=== PATIENT | female | born 1960 | race Hispanic/Latino ===

== ENCOUNTER 2019-04-22 11:56 | Observation (INO) | payer BC ==
[~2019-04-22] VITALS: Ht 154.9 cm; Wt 93.0 kg
--- OUTSIDE RECORDS SUMMARY | 2019-04-22 11:59 | XMS REPORT | Continuity of Care Document ---
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 Name Role Phone [email or web address] Unavailable Unavailable Problems Problem Status Onset Date Classification Date Reported Comments Source Z12.31 - ENCNTR SCREEN MAMMOGRAM FOR MA Active 09/20/2016 [facility] E11.9 - TYPE 2 DIABETES MELLITUS WITHO Active 12/12/2015 [facility] DX: R31.9=HEMATURIA, UNSPECIFIED// E11.9 Active 12/12/2015 [facility] Breasts asymmetrical (finding) Active Problem 12/01/2017 [facility] Ca cervix - screening done (finding) Active Problem 12/01/2017 [facility] Diabetes mellitus (disorder) Resolved Problem 12/01/2017 [facility] Increased frequency of urination (finding) Active Problem 12/01/2017 [facility] Lower abdominal pain (finding) Active Problem 12/01/2017 [facility] Moderate major depression (disorder) Active Problem 12/01/2017 [facility] Morbid obesity (disorder) Active Problem 12/01/2017 [facility] Pain in female genitalia (finding) Active Problem 12/01/2017 [facility] Rheumatoid arthritis (disorder) Active Problem 12/01/2017 [facility] Screening status (finding) Active Problem 12/01/2017 [facility] Swelling of breast (finding) Active Problem 12/01/2017 [facility] Diabetes mellitus type 2 (disorder) Active Problem 12/01/2017 [facility] HEMATURIA, UNSPECIFIED Active [facility] TYPE 2 DIABETES MELLITUS WITHOUT COMPLIC Active [facility] Medications Medication Details Route Status Patient Instructions Ordering Provider Order Date Source Folic Acid Daily, 0 Refill(s) Active 11/15/2017 [facility] Naproxen 375 mg=1 tab, PO, BID, PRN Pain, # 30 tab, 0 Refill(s) Active 11/15/2017 [facility] Plaquenil 200 mg, PO, Daily, 0 Refill(s) Active 11/15/2017 [facility] methotrexate 2.5 mg oral tablet PO, 0 Refill(s) Active 11/15/2017 [facility] Allergies, Adverse Reactions, Alerts Substance Category Reaction Severity Reaction type Status Date Reported Comments Source No Known Medication Allergies Assertion Drug allergy [facility] Immunizations No Data Provided for This Section Results No Data Provided for This Section Pathology Reports No Data Provided for This Section Diagnostic Reports No Data Provided for This Section Consultation Notes No Data Provided for This Section Discharge Summaries No Data Provided for This Section History and Physicals No Data Provided for This Section Vital Signs Vital Sign Value Date Comments Source BMI Calculated 38.29 11/15/2017 [facility] Weight 91.932 11/15/2017 [facility] Height 154.94 cm 11/15/2017 [facility] Temperature Oral (F) 98.7 F 11/15/2017 [facility] Respitory Rate 16 11/15/2017 [facility] Heart Rate 91 11/15/2017 [facility] Systolic (mm Hg) 133 11/15/2017 [facility] Diastolic (mm Hg) 82 11/15/2017 [facility] Encounters Location Location Details Encounter Type Encounter Number Reason For Visit Attending Provider ADM Date DC Date Status Source Outpatient [id number] GIULIANA DU 11/15/2017 [facility] Primary [facility] Outpatient [id number] Giuliana Ferris 11/15/2017 11/16/2017 [facility] Outpatient [id number] GIULIANA DU 11/28/2017 [facility] Ambulatory Pre-Reg [id number] Giuliana Ferris 11/28/2017 11/28/2017 [facility] Procedures Procedure Code Date Perfomer Comments Source Gallbladder operation 87304433 [facility] Tonsillectomy [id number] [facility] Assessment and Plan No Data Provided for This Section Plan of Care No Data Provided for This Section Social History Social History Date Source Social History TypeResponse Alcohol Current, Type Liquor. Frequency: 1-2 times per year. Previous treatment: None. Alcohol use interferes with work or home: No. Drinks more than intended: No. Others hurt by drinking: No. Household alcohol concerns: No. Smoking Status Never smoker; Concerns about tobacco use in household: No; Exposure to Tobacco Smoke None; Cigarette Smoking Last 365 Days No; Reg Smoking Cessation Counseling No entered on: 11/15/17 11/15/2017 [facility] Family History No Data Provided for This Section Advance Directives No Data Provided for This Section Functional Status No Data Provided for This Section
--- OUTSIDE RECORDS SUMMARY | 2019-04-22 11:59 | XMS REPORT | Summary of Care ---
Author Author [facility] Organization [facility] Address Unknown Phone Unavailable Encounter JOSEFINA Hall(MARVIN) [id number] Date(s): 11/15/17 - 11/15/17 [facility] [address], [address] [place] [address]- [phone] Discharge Disposition: Home or Self Care Attending Physician: Maria Esther Evans MD Vital Signs Most recent to 1 oldest [Reference Range]: Height 154.94 cm (11/15/17 10:17 AM) Temperature Oral 98.7 DegF [96.4-99.1 DegF] (11/15/17 10:17 AM) Blood Pressure 133/82 mmHg [90-140/60-90 mmHg] (11/15/17 10:17 AM) Respiratory Rate 16 BRMIN [14-20 BRMIN] (11/15/17 10:17 AM) Peripheral Pulse 91 bpm Rate [60-100 bpm] (11/15/17 10:17 AM) Weight 91.932 kg (11/15/17 10:17 AM) Body Mass Index 38.29 m2 (11/15/17 10:17 AM) Problem List Condition Effective Dates Status Health Status Informant Asymmetrical Active breasts(Confirmed) Pap smear for Active cervical cancer screening(Confirmed) Diabetes Resolved mellitus(Confirmed) Urinary Active frequency(Confirmed) Lower abdominal Active pain(Confirmed) Moderate major Active depression(Confirmed ) Morbid Active obesity(Confirmed) Pain of female Active genitalia(Confirmed) Rheumatoid Active arthritis(Confirmed) Colon cancer Active screening(Confirmed) Breast Active swelling(Confirmed) Diabetes mellitus, Active type 2(Confirmed) Allergies, Adverse Reactions, Alerts No Known Medication Allergies Medications folic acid Daily, 0 Refill(s) Start Date: 11/15/17 Status: Ordered methotrexate 2.5 mg oral tablet PO, 0 Refill(s) Start Date: 11/15/17 Status: Ordered naproxen 375 mg=1 tab, PO, BID, PRN Pain, # 30 tab, 0 Refill(s) Start Date: 11/15/17 Stop Date: 11/30/17 Status: Ordered Plaquenil 200 mg, PO, Daily, 0 Refill(s) Start Date: 11/15/17 Status: Ordered Results No data available for this section Immunizations No data available for this section Procedures Procedure Date Related Diagnosis Body Site Status Gallbladder operation Completed Tonsillectomy Completed Social History Social History Type Response Alcohol Current, Type Liquor. Frequency: 1-2 times [...] Smoking Cessation Counseling No entered on: 11/15/17 Assessment and Plan No data available for this section
--- OUTSIDE RECORDS SUMMARY | 2019-04-22 12:00 | XMS REPORT | Summary of Care ---
Author Author [facility] Organization [facility] Address Unknown Phone Unavailable Encounter HQ Stephanier_rosa(FIN) [id number] Date(s): 11/28/17 - 11/28/17 [facility] [address], [address] [place] [address]- [phone] Attending Physician: Maria Esther Evans MD Vital Signs No data available for this section Problem List Condition Effective Dates Status Health [...] Reactions, Alerts No Known Medication Allergies Medications No data available for this section Results No data available for this section [...]
[2019-04-22] MEDS ORDERED: ASPIRIN 81 MG CHEW TAB PO ONE ×2 (12:15→15:15)
--- NOTE | 2019-04-22 12:37 | Diagnostic Imaging Report ---
EXAMINATION: CXR 2 VIEW - HOPD INDICATION: Chest pain COMPARISON: None FINDINGS: LINES/TUBES:None LUNGS:The lungs are well-inflated. No focal consolidation or pulmonary edema. PLEURA:No pleural effusion or pneumothorax. MEDIASTINUM:The cardiomediastinal silhouette appears normal in size and shape. BONES/SOFT TISSUES:No acute osseous injury. ABDOMEN:No free air under the diaphragm. IMPRESSION: No focal pneumonia or pulmonary edema. Signed by: Roland Restrepo MD on 04/22/2019 12:33 PM
[2019-04-22] MEDS ORDERED: SODIUM CHLORIDE 0.9% 50ML 50 ML ONE (13:02)
[2019-04-22] MEDS ORDERED: IOPAMIDOL 370 MG/ML 200 ML INFUS..BTL INJ ONE (13:02)
[2019-04-22] MEDS ORDERED: LORAZEPAM INJ 2 MG/ML VIAL IV ONE (13:15)
--- NOTE | 2019-04-22 13:42 | Diagnostic Imaging Report ---
EXAM: CT Chest WITH contrast- Pulmonary Embolism Protocol INDICATION: Chest pain, elevated d-dimer COMPARISON: Chest radiograph of earlier the same day. TECHNIQUE: Chest was scanned utilizing a multidetector helical scanner from the lung apex through the level of the diaphragm after administration of IV contrast. Thin section reconstructions were obtained with special concentration on the pulmonary arteries. Coronal and sagittal reformations were obtained. Pulmonary embolism protocol was performed. IV CONTRAST: 100 cc of Isovue 370 RADIATION DOSE: Total DLP: 480.9 mGy*cm Dose modulation, iterative reconstruction, and/or weight based adjustment of the mA/kV was utilized to reduce the radiation dose to as low as reasonably achievable. COMPLICATIONS: None FINDINGS: LINES/ TUBES: None. PULMONARY ARTERIES: No filling defect is identified within the pulmonary arteries to the segmental level. The subsegmental pulmonary arteries are not well opacified. Main pulmonary artery measures 2.4 in diameter. LUNGS AND AIRWAYS: The central airways are patent. No focal consolidation. Mild lower lobe predominant groundglass opacity and smooth interlobular septal thickening consistent with mild interstitial edema. Mild bibasilar dependent subsegmental atelectasis. No suspicious pulmonary nodule. PLEURA: No pleural effusion. No pneumothorax. HEART AND MEDIASTINUM: The thyroid gland is normal. No supraclavicular, axillary, mediastinal, or hilar lymphadenopathy. The heart is normal in size.. There is no pericardial effusion. No right heart strain.. UPPER ABDOMEN: Limited noncontrast enhanced images of the upper abdomen demonstrate no focal abnormality of the partially visualized liver, spleen, adrenals. The pancreas and kidneys are not visualized. BONES: The visualized bony thorax is within normal limits. SOFT TISSUES: Unremarkable. IMPRESSION: No pulmonary embolism. Mild interstitial edema. Signed by: Roland Restrepo MD on 04/22/2019 1:39 PM
--- NOTE | 2019-04-22 15:07 | NUR ---
PT TO BE ADMITTED, PT AWARE OF POC, PT VOICES NO COMPLAINTS AT THSI TIME, VITAL SIGNS STABLE.
[2019-04-22] MEDS ORDERED: MORPHINE SULFATE 2 MG/ML SYR 1ML IV PRN (15:15)
[2019-04-22] MEDS ORDERED: SODIUM CHLORIDE FLUSH 10 ML SYR INJ PRN (15:15)
[2019-04-22] MEDS ORDERED: ONDANSETRON HCL INJ 2MG/ML 2ML 2 MG/ML VIAL IV PRN (15:15)
[2019-04-22] MEDS ORDERED: NITROGLYCERIN 0.4 MG SUBL SL PRN (15:15)
--- OUTSIDE RECORDS SUMMARY | 2019-04-22 15:45 | XMS REPORT ---
[facility] Address Unknown Phone Unavailable Care Team Providers Care Dependency Counselor Name Role Phone Wen HUGHES Unavailable Unavailable Problems This patient has no known problems. Allergies, Adverse Reactions, Alerts This patient has no known allergies or adverse reactions. Medications This patient has no known medications. Encounters Start Date/Time End Date/Time Encounter Type Admission Type Attending [facility] Care [facility] Care Department Encounter ID 2017-10-22 00:00:00 2017-10-22 00:00:00 Outpatient [facility] [id number] 2017-10-22 00:00:00 2017-10-22 00:00:00 Outpatient [facility] [id number] 2017-10-17 00:00:00 2017-10-17 00:00:00 Outpatient [facility] [id number] 2017-09-19 09:26:29 2017-09-19 09:26:29 Outpatient [facility] [id number] Results Test Description Test Time Test Comments Text Results Atomic Results Result Comments CT CHEST WITH CONTRAST-[facility] 2019-04-22 13:32:00 [place] [address] Patient Name: OTTO COPPOLAAdam HI MR #: [id number] : 1960 Age/Sex: 59/F Req #: [id number] Adm Physician: Ordered by: DARVIN HUGHES MD Report #: [id number] Location: [facility] Room/Bed: Procedure: [id number] HOPD/CT CHEST WITH CONTRAST-[facility] Exam Date: 04/22/19 Exam Time: 1326 REPORT STATUS: Signed EXAM: CT Chest WITH contrast- Pulmonary Embolism Protocol INDICATION: Chest pain, elevated d-dimer COMPARISON: Chest radiograph of earlier the same day. TECHNIQUE: Chest was scanned utilizing a multidetector helical scanner from the lung apex through the level of the diaphragm after administration of IV contrast. Thin section reconstructions were obtained with special concentration on the pulmonary arteries. Coronal and sagittal reformations were obtained. Pulmonary embolism protocol was performed. IV CONTRAST: 100 cc of Isovue 370 RADIATION DOSE: Total DLP: 480.9 mGy*cm Dose modulation, iterative reconstruction, and/or weight based adjustment of the mA/kV was utilized to reduce the radiation dose to as low as reasonably achievable. COMPLICATIONS: None FINDINGS: LINES/ TUBES: None. PULMONARY ARTERIES: No filling defect is identified within the pulmonary arteries to the segmental level. The subsegmental pulmonary arteries are not well opacified. Main pulmonary artery measures 2.4 in diameter. LUNGS AND AIRWAYS: The central airways are patent. No focal consolidation. Mild lower lobe predominant groundglass opacity and smooth interlobular septal thickening consistent with mild interstitial edema. Mild bibasilar dependent subsegmental atelectasis. No suspicious pulmonary nodule. PLEURA: No pleural effusion. No pneumothorax. HEART AND MEDIASTINUM: The thyroid gland is normal. No supraclavicular, axillary, mediastinal, or hilar lymphadenopathy. The heart is normal in size.. There is no pericardial effusion. No right heart strain.. UPPER ABDOMEN: Limited noncontrast enhanced images of the upper abdomen demonstrate no focal abnormality of the partially visualized liver, spleen, adrenals. The pancreas and kidneys are not visualized. BONES: The visualized bony thorax is within normal limits. SOFT TISSUES: Unremarkable. IMPRESSION: No pulmonary embolism. Mild interstitial edema. Signed by: Chato Vázquez MD on 04/22/2019 1:39 PM Dictated By: CHATO VÁZQUEZ MD [id number] Transcribed By: ALPA on 04/22/19 [id number] COPY TO: DARVIN HUGHES MD CXR 2 VIEW - HOPD 2019-04-22 12:33:00 [facility] [address] [address] Patient Name: ECHO COPPOLA MR #: [id number] : 1960 Age/Sex: 59/F Req #: [id number] Adm Physician: Ordered by: DARVIN HUGHES MD Report #: [id number] Location: [facility] Room/Bed: Procedure: [id number] HOPD/CXR 2 VIEW - HOPD Exam Date: 04/22/19 Exam Time: 1221 REPORT STATUS: Signed EXAMINATION: CXR 2 VIEW - HOPD INDICATION: Chest pain COMPARISON: None FINDINGS: LINES/TUBES:None LUNGS:The lungs are well-inflated. No focal consolidation or pulmonary edema. PLEURA:No pleural effusion or pneumothorax. MEDIASTINUM:The cardiomediastinal silhouette appears normal in size and shape. BONES/SOFT TISSUES:No acute osseous injury. ABDOMEN:No free air under the diaphragm. IMPRESSION: No focal pneumonia or pulmonary edema. Signed by: Chato Vázquez MD on 04/22/2019 12:33 PM Dictated By: CHATO VÁZQUEZ MD [id number] Transcribed By: ALPA on 04/22/19 1233 COPY TO: DARVIN HUGHES MD
--- OUTSIDE RECORDS SUMMARY | 2019-04-22 15:45 | XMS REPORT | Continuity of Care Document ---
Author Author [employer] Organization [employer] Address Unknown Phone Unavailable Care Team Providers Care Staff Development Manager Name Role Phone [employer] Unavailable Unavailable Problems Problem Status Onset Date Classification Date Reported Comments Source Z12.31 - ENCNTR SCREEN MAMMOGRAM FOR MA Active 09/20/2016 [facility] E11.9 - TYPE 2 DIABETES MELLITUS WITHO Active 12/12/2015 [facility] DX: R31.9=HEMATURIA, UNSPECIFIED// E11.9 Active 12/12/2015 [facility] Breasts asymmetrical (finding) Active Problem 12/01/2017 [facility] Ca cervix - screening done (finding) Active Problem 12/01/2017 [facility] Diabetes mellitus (disorder) Resolved Problem 12/01/2017 [facility] Increased frequency of urination (finding) Active Problem 12/01/2017 [facility] Lower abdominal pain (finding) Active Problem 12/01/2017 [facility] Moderate major depression (disorder) Active Problem 12/01/2017 [facility] Morbid obesity (disorder) Active Problem 12/01/2017 [facility] Pain in female genitalia (finding) Active Problem 12/01/2017 [facility] Rheumatoid arthritis (disorder) Active Problem 12/01/2017 [facility] Screening status (finding) Active Problem 12/01/2017 [facility] Swelling of breast (finding) Active Problem 12/01/2017 [facility] Diabetes mellitus type 2 (disorder) Active Problem 12/01/2017 [facility] HEMATURIA, UNSPECIFIED Active [facility] TYPE 2 DIABETES MELLITUS WITHOUT COMPLIC Active [facility] Medications Medication Details Route Status Patient Instructions Ordering Provider Order Date Source Folic Acid Daily, 0 Refill(s) Active 11/15/2017 [facility] Naproxen 375 mg=1 tab, PO, BID, PRN Pain, # 30 tab, 0 Refill(s) Active 11/15/2017 [facility] Plaquenil 200 mg, PO, Daily, 0 Refill(s) Active 11/15/2017 [facility] methotrexate 2.5 mg oral tablet PO, 0 Refill(s) Active 11/15/2017 [facility] Allergies, Adverse Reactions, Alerts Substance Category Reaction Severity Reaction type Status Date Reported Comments Source No Known Medication Allergies Assertion Drug allergy [facility] Immunizations No Data Provided for This Section [...] Date Comments Source BMI Calculated 38.29 11/15/2017 [facility] Weight 91.932 11/15/2017 [facility] Height 154.94 cm 11/15/2017 [facility] Temperature Oral (F) 98.7 F 11/15/2017 [facility] Respitory Rate 16 11/15/2017 [facility] Heart Rate 91 11/15/2017 [facility] Systolic (mm Hg) 133 11/15/2017 [facility] Diastolic (mm Hg) 82 11/15/2017 [facility] Encounters Location Location Details Encounter Type Encounter Number Reason For Visit Attending Provider ADM Date DC Date Status Source Outpatient [id number] GIULIANA DU 11/15/2017 [facility] Primary [facility] Outpatient [id number] Giuliana Ferris 11/15/2017 11/16/2017 [facility] Outpatient [id number] GIULIANA DU 11/28/2017 [facility] Ambulatory Pre-Reg [id number] Giuliana Ferris 11/28/2017 11/28/2017 [facility] Procedures Procedure Code Date Perfomer Comments Source Gallbladder operation [id number] [facility] Tonsillectomy [id number] [facility] Assessment and Plan No Data Provided for [...]
--- NOTE | 2019-04-22 16:00 | NUR ---
[facility] CALLED FOR TRANSPORT 45 MIN ETA
--- NOTE | 2019-04-22 17:10 | NUR ---
RECEIVED PATIENT FROM [facility]. PATIENT A/O X3, EVEN RESPIRATIONS ON RA. LUNG SOUNDS CLEAR TO AUSCULTATION. PATIENT DENIES CHEST PAIN AT THIS TIME. RIGHT AC 20 GAUGE IV SL. VITAL SIGNS STABLE. PATIENT AMBULATES. BOWEL SOUNDS ACTIVE, SKIN INTACT, NO EDEMA. ORIENTED PATIENT TO ROOM AND CALL LIGHT. BED LOW, WHEELS LOCKED, SIDE RAILS X2, CALL LIGHT IN REACH WILL CONTINUE TO MONITOR PATIENT.
[2019-04-22 17:27] VITALS: BP 143/77
[2019-04-22 17:35] VITALS: BP 143/77
[2019-04-22 19:16] LABS: CREATINE KINASE MB 1.8 ng/mL (0-5.0)
--- NOTE | 2019-04-22 19:45 | NUR ---
SPOKE WITH DR HOLBROOK NOTIFIED ABOUT THE CONSULT.NEW ORDERS RECEIVED AND ENTERED.
[2019-04-22 20:49] VITALS: BP 134/60
[2019-04-23 00:25] VITALS: BP 116/65
[2019-04-23 03:10] LABS: CREATINE KINASE MB 0.9 ng/mL (0-5.0)
[2019-04-23 04:00] VITALS: BP 133/63
[2019-04-23 06:22] LABS: BASOPHILS % 0.3 % (0.0-1.0); EOSINOPHILS # (AUTO) 0.1 (0.0-0.4); EOSINOPHILS % 2.1 % (0.0-6.0); HEMATOCRIT 37.2 % (34.2-44.1); HEMOGLOBIN 12.4 g/dL (12.0-16.0); LYMPHOCYTES # (AUTO) 1.1 (1.0-3.2); LYMPHOCYTES % 18.1 % (18.0-39.1); MEAN CORPUSCULAR HEMOGLOBIN 27.3 pg (28-32); MEAN CORPUSCULAR HGB CONC 33.3 g/dL (31-35); MEAN CORPUSCULAR VOLUME 81.9 fL (81-99); MONOCYTES # (AUTO) 0.5 (0.2-0.8); MONOCYTES % 8.6 % (4.4-11.3); NEUTROPHILS # (AUTO) 4.4 (2.1-6.9); NEUTROPHILS % 70.4 % (38.7-80.0); PLATELET COUNT 246 x10e3/uL (140-360); RED BLOOD COUNT 4.54 x10e6/uL (3.6-5.1); RED CELL DISTRIBUTION WIDTH 14.4 % (11.7-14.4)
[2019-04-23 06:43] LABS: CREATINE KINASE MB 0.9 ng/mL (0-5.0)
--- NOTE | 2019-04-23 07:00 | NUR ---
BEDSIDE SHIFT REPORT GIVEN TO ONCOMING NURSE.PT RESTING IN BED WITH NO S/S OF DISTRESS.
[2019-04-23 07:02] LABS: ALANINE AMINOTRANSFERASE 15 IU/L (0-55); ALBUMIN 3.5 g/dL (3.5-5.0); ALKALINE PHOSPHATASE 91 IU/L (40-150); BLOOD UREA NITROGEN 9 mg/dL (7-26); BUN/CREATININE RATIO 11 (6-25); CALCIUM 9.5 mg/dL (8.4-10.2); CARBON DIOXIDE 26 mmol/L (22-29); CHLORIDE 105 mmol/L (98-107); CHOL/HDL RATIO 5.1 (3.0-3.6); CHOLESTEROL 202 MD/DL (0-199); CREATININE, SERUM 0.81 mg/dL (0.57-1.11); EST GLOMERULAR FILTRATION RATE > 60 ML/MIN (60-); GLUCOSE 103 mg/dL (74-118); HDL CHOLESTEROL 40 MG/DL (40-60); LDL CHOLESTEROL 143 MG/DL (60-130); SODIUM 141 mmol/L (136-145); TRIGLYCERIDES 95 MG/DL (0-149)
--- NOTE | 2019-04-23 07:02 | NUR ---
RECEIVED PATIENT RESTING IN BED NO S/S OF DISTRESS. BED LOW, WHEELS LOCKED, SIDE RAILS X2. CALL LIGHT IN REACH WILL CONTINUE TO MONITOR PATIENT.
[2019-04-23 08:03] VITALS: BP 137/66
[2019-04-23 08:38] VITALS: BP 137/66
[2019-04-23] MEDS ORDERED: ASPIRIN 81 MG ENTERIC COATED PO SCH (09:00)
--- NOTE | 2019-04-23 09:45 | NUR ---
PATIENT A/O X3, EVEN RESPIRATIONS ON RA. LUNG SOUNDS CLEAR TO AUSCULTATION. PATIENT DENIES CHEST PAIN AT THIS TIME. RIGHT AC 20 GAUGE IV SL. VITAL SIGNS STABLE. PATIENT AMBULATES. BOWEL SOUNDS ACTIVE, SKIN INTACT, NO EDEMA. CALL LIGHT IN REACH WILL CONTINUE TO MONITOR PATIENT.
--- NOTE | 2019-04-23 10:34 | NUR ---
PATIENT LEFT FOR STRESS TEST AT THIS TIME
--- NOTE | 2019-04-23 11:20 | NUR ---
PATIENT BACK FROM STRESS TEST.
--- NOTE | 2019-04-23 11:50 | NUR ---
PT NOT IN ROOM
[2019-04-23 12:44] VITALS: BP 145/64
[2019-04-23] MEDS ORDERED: BYSTOLIC10 MG PO (14:01)
--- NOTE | 2019-04-23 14:15 | NUR ---
REMOVED PATIENTS IV. CATHETER TIP INTACT AND PRESSURE DRESSING APPLIED.
--- NOTE | 2019-04-23 14:55 | NUR ---
PATIENT DISCHARGED FROM FACILITY. PATIENT GATHERED ALL PERSONAL BELONGINGS, DISCHARGE INSTRUCTIONS, AND FOLLOW UP INFORMATION. LEFT UNIT IN WHEELCHAIR AND WENT HOME VIA PRIVATE AUTO. NO SIGNS OF DISTRESS WHEN LEAVING FACILITY.
--- NOTE | 2019-04-23 18:25 | History and Physical ---
TITLE OF THE TEST: Cardiac stress test. TECHNICAL DETAILS: The protocol is Abraham with target heart rate at 139 per minute. RESULTS: 1. The patient exercised for total of 5 minute and 33 seconds. 2. Heart rate increased from 92 per minute to 141 per minute. 3. Blood pressure increased from 140/92 to 167/121. 4. No chest pain, but shortness of breath. 5. No EKG changes. IMPRESSION: Negative cardiac stress test. Limitation of negative cardiac stress test are discussed and explained. The patient strongly advised to modify cardiac risk factor including CARMELO inhibitor, aspirin, statin, diabetes management, weight loss. In case the patient having more symptoms, she is strongly advised to give me a call. She is advised to come to see me in my office in a week or 10 days with all her medication. MD JOS Nieves/MODL /[id number]
--- NOTE | 2019-04-23 18:56 | Consultation ---
DATE OF CONSULTATION: 04/23/2019 Cardiac Consultation REASON FOR CONSULTATION: Chest pain. HISTORY: A 59-year-old lady, who is known with obesity, rheumatoid arthritis for the last 10 years, hypertension recently diagnosed, and borderline diabetes. The patient in her usual status of health. She started having very vague chest discomfort and left arm pain. She got alarmed about them. They are very atypical. They are sharp in nature. The patient's activities are limited. She does not do much of physical activity because of her arthritis. Regardless, she does have class 3 shortness of breath on exertion. She does not have typical angina. There is no recent travel. There is no pleuritic nor pericarditic component of chest pain. She came to the emergency room. Her D-dimer was mildly elevated. CT scan showed no pulmonary embolism. Her serial cardiac enzymes are normal. Her lipid profile showed triglycerides of 95, cholesterol of 202, HDL of 40, LDL of 143. The patient's other lab showed glucose of 103. The patient admitted and cardiac consultation is obtained. I visited with the patient, who is doing well today. She denied having any angina or any other chest pain. Today, she is feeling fine. She does have some joint aches and pain. REVIEW OF SYSTEMS: Extensive to all systems, will be summarized for clarity and it is as per this section and HPI. GENERAL: No fever, no chills. No recent travel. No hormone use. HEENT: No vision, no hearing problem. PULMONARY AND CARDIAC: As per above. No orthopnea. No paroxysmal nocturnal dyspnea. There are symptoms to suggest sleep apnea. GI: No hematemesis. No melena. Occasional heartburn. : Urgency, but no hematuria. HEMATOLOGY: No easy bruising or bleeding. MUSCULOSKELETAL: Several joint aches and pain relatively controlled with methotrexate and hydroxychloroquine she takes. NEUROLOGICAL: No dizzy spells. No seizures. No localized weakness. ENDOCRINE: The patient is borderline diabetic, not taking any medication. SKIN: No skin rashes. SOCIAL HISTORY: She is single. She never get . She is nonsmoker and non-alcohol drinker. 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 HOME MEDICATIONS: The patient takes methotrexate 6 tablets per week, hydroxychloroquine 200 mg twice a day. Recently was given ramipril 5 mg, but she did not start on that and she is supposed "to be on metformin," but also she did not take that. ALLERGIES: NONE. PAST MEDICAL HISTORY: 1. Rheumatoid arthritis for the last 10 years. 2. Hypertension, just diagnosed. 3. Borderline diabetes, also just diagnosed. 4. Obesity. FAMILY HISTORY: Father at age 82. He is on hemodialysis, he got also dementia. He is not diabetic. Mother, she is diabetic. She is at age 79. She does have two siblings, one brother and one sister, both of them are diabetic. No children. PHYSICAL EXAMINATION: VITAL SIGNS: Height of 5 feet 1 inch, weight of 205 pounds, blood pressure 130/60, heart rate of 80, respiratory rate of 18. HEENT: Pupils are equal and reactive. NECK: No elevation of jugular venous pulsation. Short neck. No thyromegaly. No lymphadenopathy. CHEST: Clear to auscultation and percussion. There is some evidence of fungus infection under the breast. HEART: PMI 5th left intercostal space. Normal first and second heart sounds. ABDOMEN: Soft with good bowel sounds. No organomegaly. No abdominal bruits. EXTREMITIES: No cyanosis, no clubbing, and no edema. No signs of deep venous thrombosis. NEUROLOGIC: Awake, alert, and oriented. No motor or sensory deficits. LABORATORY DATA: Sodium of 141, potassium of 4, BUN of 9, and creatinine of 0.81, glucose of 103. White blood cell count of 6.2, hemoglobin 12.4, hematocrit 37%, platelet count of 246,000. EKG showing normal sinus rhythm, poor R-wave progression. D-dimer at 878. CT scan shows no pulmonary embolism. Triglycerides of 95, cholesterol of 202, HDL of 40, LDL of 143. IMPRESSION AND PLAN: 1. Chest pain. 2. Rheumatoid arthritis. 3. Hypertension. 4. Borderline diabetes. 5. Obesity. The patient already ruled out with serial cardiac enzymes. Options of workup are discussed. The patient will be scheduled for cardiac stress test. Differential diagnosis, care is discussed and explained. MD JOS Nieves/REILLY /[id number]
--- NOTE | 2019-04-23 20:37 | History and Physical ---
HISTORY OF PRESENT ILLNESS: A 59-year-old female with past medical history positive for hypertension, borderline diabetes, came here with chest pain radiated to the left arm. The blood pressure was in the 180 range. The patient apparently was prescribed ramipril. She decided not to take and came to the emergency room. EKG was normal. Troponin x3 normal. Stress test was done by Dr. Reyes, Cardiology. Report is pending. EKG is normal. The patient might be going home today. REVIEW OF SYSTEMS: CARDIOVASCULAR: She had a very atypical chest pain, like a sharp kind of chest pain, on and off, radiating to the left arm. No palpitations. RESPIRATORY: No shortness of breath. No cough. GASTROINTESTINAL: No nausea or vomiting. No diarrhea. GENITOURINARY: No frequency. No dysuria. ALLERGIES: NOT ALLERGIC TO ANY MEDICATION. SOCIAL HISTORY: She does not smoke. She does not drink. PAST MEDICAL HISTORY: Hypertension and borderline diabetes. PHYSICAL EXAMINATION: VITAL SIGNS: Blood pressure 145/64, temperature 97.8, heart rate 84 per minute, respiratory rate 22 per minute, and oxygen saturation 95%. HEART: Showed regular rhythm. Normal S1 and S2 sounds. LUNGS: Clear bilaterally. ABDOMEN: Soft. EXTREMITIES: Show no evidence of cyanosis or hematoma. LABORATORY DATA: On the blood work, we have BMP with a sodium of 141, potassium 4.0, chloride 105, CO2 of 26, BUN 9, creatinine 0.81, and glucose 103. On the CBC; white count 6.25, hemoglobin 12.4, hematocrit 37.2, and platelet count 246,000. AST 21, ALT 15, total bilirubin 1.2, and alkaline phosphatase 91. On the echocardiogram, ejection fraction 25%, mild mitral regurgitation. Also on the EKG, which I have, normal sinus rhythm with no evidence of any ST-segment elevation or depression or T-wave inversions. We are going to be waiting for the final report on the stress test today done by Dr. Reyes, Cardiology. If it is negative, the patient might be able to go home. The patient is told to restart taking the ramipril that she was supposed to be taking 5 mg daily. Continue aspirin 81 mg daily. Discharge pending on the stress test report today. If she gets discharged, she is going to follow up with her primary care physician, Dr. Hummel. MD ALEXANDRA Simeon/REILLY /[id number]
--- NOTE | 2019-04-24 13:15 | Discharge Summary ---
HOSPITAL COURSE: The patient is a 59-year-old female, past medical history positive for hypertension and diabetes. She had an episode of atypical chest pain. Cardiac enzymes were negative. EKG was unremarkable. Status is done by Dr. Reyes. Preliminary report is negative for ischemia, but we are waiting for the final report. If it is negative for ischemia, then the patient might be able to go home today. Apparently, the patient was prescribed on ramipril, which is an antihypertensive medication. She decided not to take it. The blood pressure was extremely high when she came to the emergency room with systolic blood pressure was in the 200. Now that she is back on taking blood pressure medication, the blood pressure is better and the chest pain is gone. PHYSICAL EXAMINATION: VITAL SIGNS: Blood pressure 145/64, temperature 97.8, heart rate 84 per minute, respiratory rate 22 per minute, and oxygen saturation 95%. HEART: Showed regular rhythm. Normal S1 and S2 sound. LUNGS: Clear bilaterally. ABDOMEN: Soft. DIAGNOSTIC DATA: Cardiac enzymes negative. EKG was normal sinus rhythm with no evidence of any ST-segment elevation or depression. Chest x-ray is negative also for any infiltrate or pneumonia. Echocardiogram showed an ejection fraction of 50% to 55% with trace mitral regurgitation and stiff course. FINAL IMPRESSION: 1. Hypertensive emergency. 2. Atypical chest pain. 3. Obesity. 4. Diabetes mellitus type 2, which is according to the patient is borderline. PLAN OF TREATMENT: Continue aspirin 81 mg daily. She is taking ramipril 5 mg daily. I am going to also add Bystolic 10 mg daily. The patient is going to be going home today if the stress test is negative, which is going to be pending report from Dr. Reyes, Cardiology, who is on the case. MD ALEXANDRA Simeon/REILLY /[id number]
== END 2019-04-23 14:55 | disposition home or self-care (01) ==
LOC: FSED 11:56 → ERHOLD 15:19 → MED/SURG 17:10
PROVIDERS: ADMIT Internal Medicine; ATTEND Internal Medicine
DX: I16.1 Hypertensive emergency (principal); I34.0 Nonrheumatic mitral (valve) insufficiency; I10 Essential (primary) hypertension; M06.9 Rheumatoid arthritis, unspecified; E66.9 Obesity, unspecified; Z68.38 Body mass index [BMI] 38.0-38.9, adult
CPT/HCPCS: 36415; 71046; 71260; 80053 ×2; 80061; 82550 ×2; 82553 ×2; 82948 ×2; 83036; 83880; 84484 ×2; 85025 ×2; 85379; 93005; 93017; 93306; 99284; G0378 ×2; Q9967